=== PATIENT | male | born 1980 | race African-American/Black ===

== ENCOUNTER 2021-02-28 17:01 | Inpatient (IN) | payer OTHER, SELFPAY ==
[2021-02-28 17:35] LABS: Basophils % 1.1 % (0-1.3); Hematocrit 41.1 % (39.6-49.0); Lymphocytes % 40.3 % (15.3-44.8); MPV 8.9 fL (7.6-11.3); RBC Red Blood Cell Count 4.63 M/uL (4.33-5.43)
[2021-02-28 17:36] LABS: Protime INR 1.08
[2021-02-28] MEDS ORDERED: ASPIRIN 81 MG CHEWABLE TABLET ONE (17:42)
[2021-02-28] MEDS ORDERED: MORPHINE 4 MG/ML SYR ONE (17:43)
[2021-02-28] MEDS ORDERED: ONDANSETRON 4 MG/2 ML VIAL ONE (17:43)
[2021-02-28] MEDS ORDERED: FAMOTIDINE 20 MG/2 ML VIAL IV ONE (17:44)
[2021-02-28 17:47] LABS: Albumin 3.8 g/dL (3.4-5.0); Potassium 3.9 mmol/L (3.5-5.1)
--- NOTE | 2021-02-28 17:56 | ER ---
Nurse's Notes [facility] Name: Beau Jacobo Age: 40 yrs Sex: Male : 1980 Arrival Date: 02/28/2021 Time: 17:02 Bed 6 Private MD: Diagnosis: Chest pain, unspecified;Chest pain on breathing;Essential (primary) hypertension;Angina pectoris, unspecified Presentation: 02/28 17:18 Chief complaint: Patient states: Pt reporting that he woke up this am with pressure jh6 type pain that radiated to back. states taking a deep breath makes the pain worse. Coronavirus screen: Vaccine status: Patient reports being unvaccinated. Ebola Screen: Patient negative for fever greater than or equal to 101.5 degrees Fahrenheit, and additional compatible Ebola Virus Disease symptoms No symptoms or risks identified at this time. Initial Sepsis Screen: Does the patient meet any 2 criteria? No. Patient's initial sepsis screen is negative. Does the patient have a suspected source of infection? No. Patient's initial sepsis screen is negative. Risk Assessment: Do you want to hurt yourself or someone else? Patient reports no desire to harm self or others. Onset of symptoms was February 28, 2021. Care prior to arrival: None. Activity prior to arrival: None. Mechanism of Injury: No Mechanism of Injury. 17:18 Method Of Arrival: Ambulatory [facility] 17:18 Acuity: STAN 2 [facility] Triage Assessment: 17:36 General: Appears comfortable, well developed, Behavior is calm, cooperative. Pain: [facility] Complains of pain in chest Pain radiates to back Pain currently is 8 out of 10 on a pain scale. Quality of pain is described as pressure. Historical: - Allergies: 17:37 No Known Allergies; [facility] - Home Meds: 17:37 None [Active]; [facility] - PMHx: 17:37 None; [facility] - Immunization history:: Adult Immunizations unknown. - Family history:: not pertinent. - Social history:: Patient/guardian denies using Smoking status: Patient denies any tobacco usage or history of. Screenin:36 Abuse screen: Denies threats or abuse. Nutritional screening: No deficits noted. [facility] Tuberculosis screening: No symptoms or risk factors identified. Fall Risk None identified. Assessment: 17:34 Also complains of no other symptoms. Pain: Complains of pain in chest Pain does not jh radiate. Pain radiates to back Pain currently is 10 out of 10 on a pain scale. Quality of pain is described as pressure, Pain began suddenly. Cardiovascular: Reports chest pain, Capillary refill < 3 seconds Rhythm is sinus rhythm. Respiratory: No deficits noted. 18:34 Pain: Complains of pain in chest Pain radiates to back Pain currently is 3 out of 10 on [facility] a pain scale. Is intermittent. Vital Signs: 17:18 BP 134 / 87; Pulse 78; Resp 20; Temp 98.6; jh6 17:35 BP 132 / 86; Pulse 69; Resp 17; Pulse Ox 100% ; jh6 18:14 BP 137 / 84; Pulse 71; Resp 18; Pulse Ox 99% on 2 lpm NC; jh6 18:33 Weight 104.5 kg; 6 Vitals: 18:14 Cardiac Rhythm Assessment Regular. [facility] ED Course: 17:02 Patient arrived in ED. am2 17:03 Mitchell Murillo MD is Attending Physician. [facility] 17:10 Inserted saline lock: 20 gauge in right antecubital area, using aseptic technique. 6 17:13 EKG done, by ED staff, reviewed by Mitchell Murillo MD. [facility] 17:15 Patient has correct armband on for positive identification. Bed in low position. Call [facility] light in reach. Side rails up X 1. 17:17 Ayde Ashraf, RN is Primary Nurse. jh6 17:34 Triage completed. jh6 17:37 awake overnight monitor on. Pulse ox on. 6 17:38 Arm band placed on. 6 17:39 Oxygen administration via nasal cannula \T\ 2L/min. jh6 17:46 XRAY Chest (1 view) In Process Unspecified. EDMS 17:47 X-ray(s) taken. PT TAKEN TO CT VIA WHEELCHAIR. jh6 17:56 Laith Sierra DO is Hospitalizing Provider. [facility] 17:57 Herbert London MD is Hospitalizing Provider. [facility] 18:01 CT Aorta for Dissection In Process Unspecified. EDMS 18:[address] VIA WHEELCHAIR. jh6 21:06 No provider procedures requiring assistance completed. Patient admitted, IV remains in em place. Administered Medications: 17:55 Drug: NS 0.9% 1000 ml Route: IV; Rate: 1 bolus; Site: right antecubital; jh6 20:19 Follow up: IV Status: Completed infusion bs2 18:10 Drug: morphine 4 mg Route: IVP; Site: right antecubital; jh6 18:45 Follow up: Response: Pain is decreased jh6 18:15 Drug: Pepcid (famotidine) 20 mg Route: IVP; Site: right antecubital; jh6 18:46 Follow up: Response: Pain is decreased jh6 18:15 Drug: Zofran (Ondansetron) 4 mg Route: IVP; Site: right antecubital; jh6 18:45 Follow up: Response: No adverse reaction jh6 18:18 Drug: NS 0.9% 1000 ml Route: IV; Rate: 125 ml/hr; Site: right antecubital; jh6 20:20 Follow up: IV Status: Infusion continued upon admission bs2 18:18 Drug: Aspirin Chewable Tablet 324 mg Route: PO; jh6 18:46 Follow up: Response: No adverse reaction jh6 18:45 Drug: PlaVIX (clopidogrel) 300 mg Route: PO; jh6 18:51 Follow up: Response: No adverse reaction jh6 18:45 Drug: Lovenox (enoxaparin) 1 mg/kg Route: Sub-Q; Site: right lower abdomen; jh6 18:51 Follow up: Response: No adverse reaction jh6 18:51 CANCELLED (FLUIDS NOT NEEDED.): NS 0.9% 500 ml IV at bolus once jh6 19:06 Drug: Mucomyst - Acetylcysteine 600 mg Route: PO; jh6 20:19 Follow up: Response: No adverse reaction bs2 20:17 Not Given (Hemodynamic Parameters; HR 566): Lopressor (metoprolol TARTRATE)) 25 mg PO em once Outcome: 17:56 Decision to Hospitalize by Provider. gregory 21:06 Admitted to Med/surg accompanied by nurse, via wheelchair, room 224, Report called to flora Choi RN 21:06 Condition: good 21:06 Instructed on discharge instructions, Demonstrated understanding of instructions. 21:07 Patient left the ED. em Signatures: Dispatcher [facility] Mitchell Willett MD MD cha Munoz, Edgar, RN RN Shaheed Jimenez em1 Paul Moreno, MILITARY SCIENCE TEACHER-C MILITARY SCIENCE TEACHER-Cla1 Monica Raphael am2 Maritza Dueñas 3 Glenys Castellano, RN RN bs2 Ayde Ashraf RN RN jh6 Corrections: (The following items were deleted from the chart) 17:15 17:14 EKG done, by ED staff, reviewed by Mitchell Murillo MD em1 em1 17:39 17:38 Social history: Smoking status: Patient denies any tobacco usage or history of. david jh6
--- NOTE | 2021-02-28 17:57 | EDPHYS ---
Physician Documentation [facility] Name: Beau Jacobo Age: 40 yrs Sex: Male : 1980 Arrival Date: 02/28/2021 Time: 17:02 Bed 6 Private MD: ED Physician Mitchell Murillo HPI: 02/28 17:17 This 40 yrs old Black Male presents to ER via Unassigned with complaints of Chest Pain. [facility] 17:17 The patient or guardian reports chest pain that is located primarily in the anterior [facility] chest wall, bilaterally. Onset: this morning. The pain radiates to Associated signs and symptoms: Pertinent positives: shortness of breath. The chest pain is described as a heaviness, sharp. Duration: The patient or guardian reports a single episode, that is still ongoing. Modifying factors: The symptoms are alleviated by remaining still, the symptoms are aggravated by deep breath. Severity of pain: At its worst the pain was mild moderate in the emergency department the pain is unchanged. Historical: - Allergies: 17:37 No Known Allergies; [facility] - Home Meds: 17:37 None [Active]; [facility] - PMHx: 17:37 None; [facility] - Immunization history:: Adult Immunizations unknown. - Family history:: not pertinent. - Social history:: Patient/guardian denies using Smoking status: Patient denies any tobacco usage or history of. ROS: 17:17 Constitutional: Negative for fever, chills, and weight loss, Eyes: Negative for injury, gregory pain, redness, and discharge, ENT: Negative for injury, pain, and discharge, Neck: Negative for injury, pain, and swelling, Abdomen/GI: Negative for abdominal pain, nausea, vomiting, diarrhea, and constipation, Back: Negative for injury and pain, : Negative for injury, bleeding, discharge, and swelling, MS/Extremity: Negative for injury and deformity, Skin: Negative for injury, rash, and discoloration, Neuro: Negative for headache, weakness, numbness, tingling, and seizure, Psych: Negative for depression, anxiety, suicide ideation, homicidal ideation, and hallucinations, Allergy/Immunology: Negative for hives, rash, and allergies, Endocrine: Negative for neck swelling, polydipsia, polyuria, polyphagia, and marked weight changes, Hematologic/Lymphatic: Negative for swollen nodes, abnormal bleeding, and unusual bruising. 17:17 Cardiovascular: Positive for chest pain, of the chest. 17:17 Cardiovascular: Positive for Exam: 17:17 Constitutional: This is a well developed, well nourished patient who is awake, alert, gregory and in no acute distress. Head/Face: Normocephalic, atraumatic. Eyes: Pupils equal round and reactive to light, extra-ocular motions intact. Lids and lashes normal. Conjunctiva and sclera are non-icteric and not injected. Cornea within normal limits. Periorbital areas with no swelling, redness, or edema. ENT: Nares patent. No nasal discharge, no septal abnormalities noted. Tympanic membranes are normal and external auditory canals are clear. Oropharynx with no redness, swelling, or masses, exudates, or evidence of obstruction, uvula midline. Mucous membranes moist. Neck: Trachea midline, no thyromegaly or masses palpated, and no cervical lymphadenopathy. Supple, full range of motion without nuchal rigidity, or vertebral point tenderness. No Meningismus. Chest/axilla: Normal chest wall appearance and motion. Nontender with no deformity. No lesions are appreciated. Cardiovascular: Regular rate and rhythm with a normal S1 and S2. No gallops, murmurs, or rubs. Normal PMI, no JVD. No pulse deficits. Respiratory: Lungs have equal breath sounds bilaterally, clear to auscultation and percussion. No rales, rhonchi or wheezes noted. No increased work of breathing, no retractions or nasal flaring. Abdomen/GI: Soft, non-tender, with normal bowel sounds. No distension or tympany. No guarding or rebound. No evidence of tenderness throughout. Back: No spinal tenderness. No costovertebral tenderness. Full range of motion. Skin: Warm, dry with normal turgor. Normal color with no rashes, no lesions, and no evidence of cellulitis. MS/ Extremity: Pulses equal, no cyanosis. Neurovascular intact. Full, normal range of motion. Neuro: Awake and alert, GCS 15, oriented to person, place, time, and situation. Cranial nerves II-XII grossly intact. Motor strength 5/5 in all extremities. Sensory grossly intact. Cerebellar exam normal. Normal gait. Psych: Awake, alert, with orientation to person, place and time. Behavior, mood, and affect are within normal limits. 17:17 Musculoskeletal/extremity: DVT Exam: No signs of deep vein thrombosis. no pain, no swelling, no tenderness, negative Homans' sign noted on exam, no appreciated bluish discoloration, no erythema, no increased warmth. Vital Signs: 17:18 BP 134 / 87; Pulse 78; Resp 20; Temp 98.6; jh6 17:35 BP 132 / 86; Pulse 69; Resp 17; Pulse Ox 100% ; jh6 18:14 BP 137 / 84; Pulse 71; Resp 18; Pulse Ox 99% on 2 lpm NC; jh6 18:33 Weight 104.5 kg; jh6 MDM: 17:08 Patient medically screened. gregory 17:19 Differential diagnosis: abnormal EKG, acute myocardial infarction, acute pericarditis, gregory coronary artery disease chest wall pain, congestive heart failure cholecystitis, hiatal hernia, pancreatitis, pericarditis, pulmonary embolus, stable angina, thoracic aortic disection, unstable angina. HEART Score: History: Moderately Suspicious (1), ECG: Non specific repolarization disturbance / LBTB / PM (1), Age: < or = 45 years (0), Risk Factors: 1 or 2 risk factors (1), [Hypertension] [+ Family HX] Troponin: < or = 1 x Normal Limit (0). The patient was given aspirin in the Emergency Department. The patient's deep vein thrombosis risk score was calculated as follows: Total Score: 0. This patient was found to be at low risk for a deep vein thrombosis by using the Well's assessment criteria. The patient's pulmonary embolism risk score was calculated as follows: Total Score: 0-2 points. This patient was found to be at low risk for a pulmonary embolism by using the Well's assessment criteria. NITA Risk Score: TOTAL SCORE = 0. Data reviewed: vital signs, nurses notes, lab test result(s), EKG, radiologic studies, CT scan, plain films. Data interpreted: oracle dba: rate is 79 beats/min, rhythm is regular, Pulse oximetry: on room air is 100 %. Test interpretation: by ED physician or midlevel provider: ECG, plain radiologic studies. Counseling: I had a detailed discussion with the patient and/or guardian regarding: the historical points, exam findings, and any diagnostic results supporting the discharge/admit diagnosis, lab results, radiology results, the need for further work-up and treatment in the hospital. 02/28 17:17 Order name: Basic Metabolic Panel; Complete Time: 18:13 [facility] 02/28 17:17 Order name: CBC with Diff; Complete Time: 17:52 [facility] 02/28 17:17 Order name: LFT's; Complete Time: 18:13 [facility] 02/28 17:17 Order name: Magnesium; Complete Time: 18:13 [facility] 02/28 17:17 Order name: NT PRO-BNP; Complete Time: 18:13 [facility] 02/28 17:17 Order name: PT-INR; Complete Time: 17:52 [facility] 02/28 17:17 Order name: Troponin (emerg Dept Use Only); Complete Time: 18:13 [facility] 02/28 17:17 Order name: XRAY Chest (1 view); Complete Time: 18:23 [facility] 02/28 17:17 Order name: Lipase; Complete Time: 18:13 [facility] 02/28 17:17 Order name: CT Aorta for Dissection; Complete Time: 18:13 [facility] 02/28 17:17 Order name: SARS-COV-2 RT PCR (Document "Date of Onset" if Symptomatic) 02/28 17:17 Order name: EKG; Complete Time: 17:18 [facility] 02/28 17:17 Order name: Cardiac monitoring; Complete Time: 20:20 [facility] 02/28 17:17 Order name: EKG - Nurse/Tech; Complete Time: 20:20 [facility] 02/28 17:17 Order name: IV Saline Lock; Complete Time: 20:20 [facility] 02/28 17:17 Order name: Labs collected and sent; Complete Time: 20:20 [facility] 02/28 17:17 Order name: O2 Per Protocol; Complete Time: 20:20 [facility] 02/28 17:17 Order name: O2 Sat Monitoring; Complete Time: 20:20 [facility] Administered Medications: 17:55 Drug: NS 0.9% 1000 ml Route: IV; Rate: 1 bolus; Site: right antecubital; jh6 20:19 Follow up: IV Status: Completed infusion bs2 18:10 Drug: morphine 4 mg Route: IVP; Site: right antecubital; jh6 18:45 Follow up: Response: Pain is decreased jh6 18:15 Drug: Pepcid (famotidine) 20 mg Route: IVP; Site: right antecubital; jh6 18:46 Follow up: Response: Pain is decreased jh6 18:15 Drug: Zofran (Ondansetron) 4 mg Route: IVP; Site: right antecubital; jh6 18:45 Follow up: Response: No adverse reaction jh6 18:18 Drug: NS 0.9% 1000 ml Route: IV; Rate: 125 ml/hr; Site: right antecubital; jh6 20:20 Follow up: IV Status: Infusion continued upon admission bs2 18:18 Drug: Aspirin Chewable Tablet 324 mg Route: PO; jh6 18:46 Follow up: Response: No adverse reaction jh6 18:45 Drug: PlaVIX (clopidogrel) 300 mg Route: PO; jh6 18:51 Follow up: Response: No adverse reaction jh6 18:45 Drug: Lovenox (enoxaparin) 1 mg/kg Route: Sub-Q; Site: right lower abdomen; jh6 18:51 Follow up: Response: No adverse reaction jh6 18:51 CANCELLED (FLUIDS NOT NEEDED.): NS 0.9% 500 ml IV at bolus once jh6 19:06 Drug: Mucomyst - Acetylcysteine 600 mg Route: PO; jh6 20:19 Follow up: Response: No adverse reaction bs2 20:17 Not Given (Hemodynamic Parameters; HR 566): Lopressor (metoprolol TARTRATE)) 25 mg PO em once Disposition Summary: 02/28/21 17:56 Hospitalization Ordered Location: Telemetry/MedSurg (Inpatient) gregory Problem: new gregory Symptoms: have improved gregory Bed/Room Type: Standard gregory Provider: Herbert London(02/28/21 17:57) laCarmen Hospitalization Status: Inpatient Admission(02/28/21 18:11) gregory Condition: Fair(02/28/21 18:11) gregory Room Assignment: 224(02/28/21 19:41) Diagnosis - Chest pain, unspecified gregory - Chest pain on breathing gregory - Essential (primary) hypertension gregory - Angina pectoris, unspecified gregory Forms: - Medication Reconciliation Form gregory - SBAR form gregory Signatures: Dispatcher [employer] Mitchell Willett MD MD cha Attema, Lee, PRE PRESS OPERATOR-C PRE PRESS OPERATOR-Cla1 Ros Gomez RN RN Ayde Ashraf RN RN 6 Alcon Dominique RN Glenys RN bs2 Corrections: (The following items were deleted from the chart) 17:39 17:38 Social history: Smoking status: Patient denies any tobacco usage or history of. [place] [id number] 17:57 17:56 Laith Sierra [facility] la1 18:11 17:56 Observation [facility] 18:11 17:56 Stable [facility] 18:51 17:17 NS 0.9% 500 ml IV at bolus once ordered. [place] [id number] 19:41 17:56 gregory
[2021-02-28 18:05] LABS: Bilirubin Direct 0.2 mg/dL (0-0.2); Bilirubin Total 0.6 mg/dL (0.2-1.0); Protein, Total 7.3 g/dL (6.4-8.2)
[2021-02-28 18:09] LABS: Troponin (Emerg Dept Use Only) 0.52 ng/mL (0.0-0.045)
--- NOTE | 2021-02-28 18:10 | RAD REPORT ---
EXAM DESCRIPTION: CTAngio Aorta For Dissection - 02/28/2021 6:01 pm CLINICAL HISTORY: CHEST PAIN COMPARISON: No comparisons TECHNIQUE: CT of the chest, abdomen, and pelvis was performed. All CT scans are performed using dose optimization technique as appropriate and may include automated exposure control or mA/KV adjustment according to patient size. FINDINGS: Thorax: Chest Wall: No abnormal mass Lungs: No acute abnormality. Pleura: No effusions or pneumothorax. Becca/Mediastinum: No lymphadenopathy. Aorta/Pulmonary Arteries: Unremarkable Heart: Normal size. Abdomen/Pelvis: Liver: No acute abnormality or suspicious lesions. Biliary: No biliary ductal dilatation. Stomach: No significant focal abnormality. Duodenum: No significant focal abnormality. Pancreas: No significant abnormality. Spleen: No significant abnormality. Adrenal: No suspicious lesions. Kidney/ureter: No hydronephrosis. No renal calculi. Retroperitoneum: No retroperitoneal adenopathy. Vascular: No aneurysm. Bowel: No significant focal abnormality. Peritoneum: No ascites or free air. Bladder: Grossly unremarkable. Reproductive: No adnexal masses. Bones: No acute fracture. Other: n/a IMPRESSION: No evidence of aortic aneurysm or dissection. No other acute findings are identified.
--- NOTE | 2021-02-28 18:12 | RAD REPORT ---
EXAM DESCRIPTION: RAD - Chest Single View - 02/28/2021 5:46 pm CLINICAL HISTORY: CHEST PAIN COMPARISON: CHEST PA AND LAT 2 VIEW dated 11/12/2012; CHEST PA AND LAT 2 VIEW dated 09/07/1999 FINDINGS: Lines: None. Lungs: No evidence of edema or pneumonia. Pleural: No significant pleural effusions or pneumothorax. Cardiac: The heart size is within normal limits. Bones: No acute fractures. Other: IMPRESSION: No acute cardiopulmonary disease.
[2021-02-28] MEDS ORDERED: CLOPIDOGREL 75 MG TABLET ONE (18:35)
[2021-02-28] MEDS ORDERED: ENOXAPARIN 100 MG/ML SYR SQ ONE (18:36)
--- NOTE | 2021-02-28 18:41 | P.HP ---
Certification for Inpatient Patient admitted to: Inpatient With expected LOS: >2 Midnights Patient will require the following post-hospital care: None Practitioner: I am a practitioner with admitting privileges, knowledge of patient current condition, hospital course, and medical plan of care. Services: Services provided to patient in accordance with Admission requirements found in Title 42 Section 412.3 of the Code of Federal Regulations <Paul Moreno Russel - Last Filed: 02/28/21 18:39> Patient History Date of Service: 02/28/21 Primary Care Provider: None Reason for admission: NSTEMI History of Present Illness: 40-year-old otherwise healthy -[place] male presents emergency department for chest pain. Patient reports that his pain began this morning described as pressure-like radiating to his left shoulder, left arm and left neck. Patient was evaluated in the emergency department labs were significant for creatinine 1.47 GFR 64 calcium [address] dissection protocol negative for any acute findings chest x-ray unremarkable. Patient with NSTEMI, ED provider wishes to admit for further evaluation and management. 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 moist/pink, EOMI, Sclerae nonicteric Neck: Supple, 2+ carotid pulse no bruit, No LAD, Without JVD or thyroid abnormality Respiratory: Clear to auscultation bilaterally, Normal air movement Cardiovascular: Regular rate/rhythm, Normal S1 S2 Gastrointestinal: Normal bowel sounds, No tenderness Musculoskeletal: No tenderness Integumentary: No rashes Neurological: Normal gait, Normal speech, Normal strength at 5/5 x4 extr, Normal tone, Normal affect Lymphatics: No axilla or inguinal lymphadenopathy - Studies Laboratory Data (last 24 hrs) 02/28/21 17:20: PT 12.4, INR 1.08 02/28/21 17:20: WBC 4.90, Hgb 13.9, Hct 41.1, Plt Count 246 02/28/21 17:20: Sodium 143, Potassium 3.9, BUN 16, Creatinine 1.47 H, Glucose 93, Magnesium 2.0, Total Bilirubin 0.6, AST 26, ALT 27, Alkaline Phosphatase 63, Lipase 182 <Paul Moreno - Last Filed: 02/28/21 18:39> Assessment and Plan - Plan Assessment: NSTEMI suspect ACS Renal insufficiency Plan: NSTEMI suspect ACS: Continue with aspirin, statin, Plavix, beta-rehana, Lovenox. N.p.o. for midnight for possible cardiac catheterization, cardiology consulted will trend troponin and monitor on telemetry. Renal insufficiency: Continue IV fluids overnight recheck with morning labs. If no significant provement will consider further evaluation. DVT PPX: Full dose Lovenox Code status: Full code Discharge Plan: Home Plan to discharge in: 48 Hours - Advance Directives Does patient have a Living Will: No Does patient have a Durable POA for Healthcare: No - Code Status/Comfort Care Code Status Assessed: Yes (Full code) Critical Care: No Time Spent Managing Pts Care (In Minutes): 55 <Paul Moreno - Last Filed: 02/28/21 18:39> - Problems (Diagnosis) (1) Non-STEMI (non-ST elevated myocardial infarction) Status: Acute <Herbert London - Last Filed: 03/07/21 19:20> Date of Service: 02/28/21 Subjective Agree with the HPI as above Review of Systems 10-point ROS is otherwise unremarkable Physical Examination - Vital Signs Reviewed - Physical Exam General: Alert, In no apparent distress, Oriented x3 HEENT: Atraumatic, PERRLA, EOMI Neck: Supple, JVD not distended Respiratory: Clear to auscultation bilaterally, Normal air movement Cardiovascular: Regular rate/rhythm, Normal S1 S2 Gastrointestinal: Normal bowel sounds, No tenderness Musculoskeletal: No tenderness Integumentary: No rashes Neurological: Normal speech, Normal tone, Normal affect Lymphatics: No axilla or inguinal lymphadenopathy - Studies Medications List Reviewed: Yes Assessment & Plan - Problems (Diagnosis) (1) Non-STEMI (non-ST elevated myocardial infarction) Current Visit: Yes Status: Acute - Plan 1. Serial troponins and EKG 2. Appreciate Cardiology consultation 3. Echocardiogram and stress test if cardiology is agreeable 4. Anti-platelet therapy, anti coagulation, beta-rehana, statin, and O2 as needed 5. IV morphine for pain 6. Nitro p.r.n. - Advance Directives Does patient have a Living Will: No Does patient have a Durable POA for Healthcare: No <Herbert London - Last Filed: 03/07/21 19:20>
[2021-02-28] MEDS ORDERED: ACETYLCYST 6,000 MG/30 ML VIAL ONE (19:01)
[2021-02-28] MEDS: NA CHLORIDE 0.9% 1,000 ML IV SCH (21:42)
[2021-02-28] MEDS ORDERED: MORPHINE 2 MG/ML SYR IV PRN (21:42)
[2021-02-28] MEDS ORDERED: ONDANSETRON 4 MG/2 ML VIAL IV PRN (21:42)
[2021-02-28] MEDS: ATORVASTATIN 40 MG TAB PO SCH (22:51)
[2021-03-01 00:44] LABS: Urine Appearance CLEAR (Clear); Urine Bilirubin NEGATIVE (Negative); Urine Blood NEGATIVE (Negative); Urine Color YELLOW (Yellow); Urine Glucose NEGATIVE (Negative); Urine Protein NEGATIVE (Negative); Urine Specific Gravity >=1.030 (1.005-1.030); Urine pH 6.5 (5.0-7.0)
[2021-03-01 00:47] LABS: Urine Microscopic Reflex NO UMIC
[2021-03-01 05:43] LABS: Absolute Lymphocytes (CBC) 1.4 K/uL (0.7-4.9); Basophils % 0.9 % (0-1.3); Lymphocytes % 50.5 % (15.3-44.8); MPV 8.8 fL (7.6-11.3)
[2021-03-01] MEDS: METOPROLOL TAR 25 MG TAB PO SCH ×2 (05:47→18:00)
[2021-03-01 06:52] LABS: White Blood Cell Scan OK (OK)
[2021-03-01 06:53] LABS: Blood Morphology Comment NOT SEEN (NOT SEEN); Platelet Estimate ADEQ
[2021-03-01 07:28] LABS: ALT/SGPT 24 U/L (12-78); AST/SGOT 20 U/L (15-37); Albumin 3.4 g/dL (3.4-5.0); Alkaline Phosphatase 52 U/L (45-117); BUN Blood Urea Nitrogen 15 mg/dL (7-18); Bicarbonate 29 mmol/L (21-32); Bilirubin Total 0.6 mg/dL (0.2-1.0); Glucose Level 94 mg/dL (74-106); HDL Cholesterol 35 mg/dL (40-60); LDL Cholesterol, Calculated 71 (<130); Protein, Total 6.4 g/dL (6.4-8.2); Sodium Level 144 mmol/L (136-145)
[2021-03-01 07:31] LABS: Magnesium 1.2 mg/dL (1.8-2.4); Troponin I 1.12 ng/mL (0.0-0.045)
[2021-03-01] MEDS: NA CHLORIDE 0.9% 1,000 ML IV SCH ×2 (07:42→17:42)
[2021-03-01] MEDS ORDERED: Magnesium Sulfate 2gm IVPB 2 G/50 ML BAG IV ONE ×2 (08:30→11:07)
[2021-03-01] MEDS: CLOPIDOGREL 75 MG TABLET PO SCH (08:53)
[2021-03-01] MEDS: ASPIRIN EC 81 MG TAB PO SCH (10:53)
[2021-03-01] MEDS ORDERED: HEPA 1000U/500MLS 2,000 UNIT/1,000 ML BAG IV ONE (16:10)
[2021-03-01] MEDS ORDERED: MIDAZOLAM HCL 2 MG/2 ML INJ ONE (16:10)
[2021-03-01] MEDS ORDERED: FENTANYL CITR 100 MCG/2 ML ONE (16:11)
[2021-03-01] MEDS ORDERED: ATROPINE SULF 1 MG/10 ML SYR IV ONE (16:11)
[2021-03-01] MEDS ORDERED: VERAPAMIL HCL 10 MG/4 ML VIAL IV ONE (16:11)
[2021-03-01] MEDS ORDERED: HEPARIN 5000 UNIT/ML 1 ML VIAL ONE (16:11)
[2021-03-01] MEDS ORDERED: NA CHLORIDE 0.9% 0 ML ONE (16:23)
[2021-03-01] MEDS: ATORVASTATIN 40 MG TAB PO SCH (20:22)
[2021-03-01] MEDS ORDERED: ACETAMINOPHEN 325 MG TABLET PO PRN (22:30)
[2021-03-01] MEDS ORDERED: NITROGLYCERIN 0.4 MG/TAB SL PRN (22:30)
[2021-03-02 00:46] VITALS: BMI 30.6
[2021-03-02 00:52] VITALS: O2SAT 98
[2021-03-02 03:55] LABS: Basophils % 0.6 % (0-1.3); Hematocrit 42.5 % (39.6-49.0); Lymphocytes % 27.5 % (15.3-44.8); MPV 8.5 fL (7.6-11.3); RBC Red Blood Cell Count 4.76 M/uL (4.33-5.43)
[2021-03-02] MEDS: NA CHLORIDE 0.9% 1,000 ML IV SCH (03:55)
--- NOTE | 2021-03-02 04:11 | OP ---
Date of Procedure: 03/01/2021 Surgeon: SARAH GUZMAN Procedure Performed: Selective coronary angiogram. Indication: Non-ST elevation myocardial infarction. Access: Right radial artery 6-Kosovan closed with TR band. Complications: None. Bleeding: Less than 10 mL. Anesthesia: Total sedation time was 15 minutes. Description Of Procedure: After risks, benefits, and alternatives were explained, the patient agreed to procedure and signed informed consent. The patient was brought into the cardiac catheterization laboratory, prepped and draped in usual sterile fashion. We accessed the radial artery using pediatr ic micropuncture kit and placed a 6-Kosovan slender sheath, took a 5-Kosovan tiger 4.0 catheter into ao rtic root, engaged left main, right coronary artery, took standard views. I removed the catheter and the sheath and placed TR band with good hemostasis. Findings: 1.Left main, large and normal. 2.LAD is large and normal and all diagonal branches are normal. 3.Left circumflex is normal small vessel, nondominant. 4.RCA; large dominant and normal. Conclusion: Normal coronary arteries. Recommendation: Search for other causes of chest pain. SR/MODL Voice ID: [id number] Report ID: [id number]
[2021-03-02 04:17] LABS: Albumin 3.4 g/dL (3.4-5.0); Bilirubin Total 0.6 mg/dL (0.2-1.0); Magnesium 2.1 mg/dL (1.8-2.4); Protein, Total 6.5 g/dL (6.4-8.2)
[2021-03-02] MEDS: METOPROLOL TAR 25 MG TAB PO SCH (05:41)
--- NOTE | 2021-03-02 06:50 | ECHO ---
HEIGHT: 6 ft 0 in WEIGHT: 226 lb 0 oz DATE OF STUDY: 03/01/[address]: Paul Moreno NP 2-DIMENSIONAL: YES M.MODE: YES DOPPLER: YES COLOR FLOW: YES TDS: PORTABLE: DEFINITY: BUBBLE STUDY: DIAGNOSIS: NON ST ELEVATION MYOCARDIAL INFARCTION CARDIAC HISTORY: CATHERIZATION: YES SURGERY: NO PROSTHETIC VALVE: NO PACEMAKER: NO MEASUREMENTS (cm) DIASTOLIC (NORMALS) SYSTOLIC (NORMALS) IVSd 1.0 (0.6-1.2) LA Diam 3.0 (1.9-4.0) LVEF 67% LVIDd 5.2 (3.5-5.7) LVIDs 3.3 (2.0-3.5) %FS 37% LVPWd 1.0 (0.6-1.2) Ao Diam 2.7 (2.0-3.7) 2 DIMENSIONAL ASSESSMENT: RIGHT ATRIUM: NORMAL LEFT ATRIUM: NORMAL RIGHT VENTRICLE: NORMAL LEFT VENTRICLE: NORMAL TRICUSPID VALVE: NORMAL MITRAL VALVE: NORMAL PULMONIC VALVE: NORMAL AORTIC VALVE: NORMAL PERICARDIAL EFFUSION: NONE AORTIC ROOT: NORMAL LEFT VENTRICULAR WALL MOTION: NORMAL DOPPLER/COLOR FLOW: MILD MITRAL REGURGITATION COMMENTS: NORMAL LEFT VENTRICULAR EJECTION FRACTION 60-65%. NORMAL WALL MOTION. MILD MITRAL REGURGITATION. TECHNOLOGIST: JOSE D VIZCAINO
[2021-03-02] MEDS ORDERED: INFLUENZA VACCINE (for 6+ mo) 0.5 ML DOSE IMVAC ONE (08:00)
[2021-03-02] MEDS: CLOPIDOGREL 75 MG TABLET PO SCH (10:57)
[2021-03-02] MEDS: ASPIRIN EC 81 MG TAB PO SCH (10:57)
--- NOTE | 2021-03-02 11:13 | P.PN ---
Subjective Date of Service: 03/01/21 Patient's troponins remained elevated. Still has some chest discomfort. Scheduled for heart catheterization. Review of Systems 10-point ROS is otherwise unremarkable Physical Examination - Vital Signs Temperature: 97.4 F Blood Pressure: 108/68 Pulse: 56 Respirations: 16 Pulse Ox (%): 97 - Physical Exam General: Alert, In no apparent distress, Oriented x3 HEENT: Atraumatic, PERRLA, EOMI Neck: Supple, JVD not distended Respiratory: Clear to auscultation bilaterally, Normal air movement Cardiovascular: Regular rate/rhythm, Normal S1 S2 Gastrointestinal: Normal bowel sounds, No tenderness Musculoskeletal: No tenderness Integumentary: No rashes Neurological: Normal speech, Normal tone, Normal affect Lymphatics: No axilla or inguinal lymphadenopathy - Studies Medications List Reviewed: Yes Assessment & Plan - Problems (Diagnosis) (1) Non-STEMI (non-ST elevated myocardial infarction) Current Visit: Yes Status: Acute - Plan 1. Serial troponins and EKG 2. Appreciate Cardiology consultation 3. Echocardiogram and stress test if cardiology is agreeable 4. Anti-platelet therapy, anti coagulation, beta-rehana, statin, and O2 as needed 5. IV morphine for pain 6. Nitro p.r.n. - Advance Directives Does patient have a Living Will: No Does patient have a Durable POA for Healthcare: No
[2021-03-02 12:11] VITALS: BP 129/83; TEMP 97.9
--- NOTE | 2021-03-07 19:22 | P.DS ---
Discharge Date: 03/02/21 Primary Care Provider: None Disposition: ROUTINE DISCHARGE Discharge Condition: GOOD Reason for Admission: NSTEMI Consultations: Cardiology - Problems (1) Non-STEMI (non-ST elevated myocardial infarction) Status: Acute Brief History of Present Illness: Patient is a 40-year-old otherwise healthy -Italian male [facility]. Patient reports that his pain began this morning described as pressure-like radiating to his left shoulder, left arm and left neck. Patient was evaluated in the emergency department labs were significant for creatinine 1.47 GFR 64 calcium 8.[address] dissection protocol negative for any acute findings chest x-ray unremarkable. Patient with NSTEMI, ED provider wishes to admit for further evaluation and management. Hospital Course: Patient had a cardiac catheterization that was completely normal. Patient is clinically doing well, and at this time, patient is stable for discharge home. Continue with anti-inflammatory at discharge. Vital Signs/Physical Exam: Temp Pulse Resp BP Pulse Ox 97.9 F 62 16 129/83 97 03/02/21 12:00 03/02/21 12:00 03/02/21 12:00 03/02/21 12:00 03/02/21 12:00 General: Alert, In no apparent distress, Oriented x3 Laboratory Data at Discharge: WBC 3.70 K/uL (4.3-10.9) L D 03/02/21 03:33 Hgb 14.0 g/dL (13.6-17.9) D 03/02/21 03:33 Hct 42.5 % (39.6-49.0) D 03/02/21 03:33 Plt Count 225 K/uL (152-406) D 03/02/21 03:33 PT 12.4 SECONDS (9.5-12.5) 02/28/21 17:20 INR 1.08 02/28/21 17:20 Sodium 142 mmol/L (136-145) 03/02/21 03:33 Potassium 4.0 mmol/L (3.5-5.1) 03/02/21 03:33 BUN 15 mg/dL (7-18) 03/02/21 03:33 Creatinine 1.32 mg/dL (0.55-1.3) H 03/02/21 03:33 Glucose 97 mg/dL (74-106) 03/02/21 03:33 Magnesium 2.1 mg/dL (1.8-2.4) 03/02/21 03:33 Total Bilirubin 0.6 mg/dL (0.2-1.0) 03/02/21 03:33 AST 20 U/L (15-37) 03/02/21 03:33 ALT 21 U/L (12-78) 03/02/21 03:33 Alkaline Phosphatase 55 U/L (45-117) 03/02/21 03:33 Troponin I 1.12 ng/mL (0.0-0.045) H* 03/01/21 06:44 Triglycerides 100 mg/dL (<150) 03/01/21 06:44 Cholesterol 126 mg/dL (<200) 03/01/21 06:44 HDL Cholesterol 35 mg/dL (40-60) L 03/01/21 06:44 Cholesterol/HDL Ratio 3.60 03/01/21 06:44 Lipase 182 U/L (73-393) 02/28/21 17:20 Home Medications: Unobtainable 03/02/21 Physician Discharge Instructions: OK TO DC IV AND DC HOME FOLLOW-UP WITH PRIMARY CARE PROVIDER IN 1-2 WEEKS Return to the ER if symptoms worsen CALL or TEXT DR. L[address] AT [phone] IF ANY QUESTIONS REGARDING HOSPITAL STAY. PLEASE CALL THE FLOOR AT [phone] IF ANY MEDICATION OR NURSING QUESTIONS. -No Heavy lifting >5 pounds for the next 5 days. -Keep site clean and dry for 24 hours. Do not submerge under water for 5 days(no washing dishes, taking baths, hot tubs/pools, etc...) You may shower after 24 hours. -If minor oozing, may apply Band-Aid to site during the day and remove at night. -If bleeding occurs, sit down and hold pressure with your thumb and call 911 for immediate help if bleeding or swelling does not stop. Call the doctor for: -signs of infection:redness that spreads outward from the insertion site, are is warmer than surrounding tissue, pus or drainage, increased tenderness or severe swelling or bruising. -involved extremity becomes swollen, painful, cool to touch, discolored or numb. -Temperature >101 -Chest pain or pressure, shortness of breath, dizziness, nausea or vomiting. -Return to work or any other questions regarding your cardiology care. Once discharged call on the next working day for a two week follow up with your doctor. Diet: Regular Activity: Fall precautions Followup: NONE,NONE [Primary Care Provider] - Moody Philippe MD [ACTIVE - CAN ADMIT] - (Follow up in 2 weeks) Time spent managing pt's care (in minutes): 35
--- NOTE | 2021-03-08 09:53 | CON ---
Date of Consultation: 03/01/2021 Reason For Consultation: Non-ST elevation myocardial infarction. History Of Present Illness: Mr. Jacobo is 40. No previous cardiac history. No medications. No zane rgies. Comes in with classic symptoms for unstable angina. Troponin 1.12. His mag was 1.2. His cr eatinine was 1.47. Asymptomatic now. Past Medical History: As stated earlier. Allergies: STATED EARLIER. Home Medications: As stated earlier. Review of Systems: Negative. Social History: Negative. Family History: Negative. Physical Examination: Vital Signs: Stable, afebrile. No acute distress. Still has some chest pain intermittently like 2/ 10. HEENT: Negative. Neck: Supple with no bruit. Chest: Clear. Cardiac: Regular rhythm and rate with S4 gallops. No murmurs. No rubs. Abdomen: Benign. Extremities: Revealed no clubbing, cyanosis, or edema. Diagnostic Data: As stated earlier. EKG is nonspecific. Impression And Plan: Non-ST segment elevation myocardial infarction. Echocardiogram is pending. Co ntinue aspirin. Continue metoprolol. Hold Lovenox. Plan for a heart catheterization to define his coronary anatomy. The patient understands the risks and the benefits of the procedure and he agrees to erasmo GARZON Voice ID: [id number] Report ID: [id number]
== END 2021-03-02 13:43 | disposition home or self-care (01) | DRG 282 ==
LOC: ER 17:01 → ERHOLD 18:42 → 2ND 20:21
PROVIDERS: ADMIT Hospitalist; ATTEND Hospitalist
PROC: 4A023N7 Measurement of Cardiac Sampling and Pressure, Left Heart, Percutaneous Approach (ICD-10-PCS; principal; 2021-03-01)
PROC: B2111ZZ Fluoroscopy of Multiple Coronary Arteries using Low Osmolar Contrast (ICD-10-PCS; 2021-03-01)
DX: I21.4 Non-ST elevation (NSTEMI) myocardial infarction (principal); I10 Essential (primary) hypertension; N28.9 Disorder of kidney and ureter, unspecified; I20.9 Angina pectoris, unspecified; Z20.822 Contact with and (suspected) exposure to COVID-19
CPT/HCPCS: 36415; 71045; 71275; 74175; 80048; 80053; 80061; 80076; 81003; 82947; 83690; 83735; 83880; 84439; 84443; 84484; 85025; 85610; 93005; 93306; 93458; 96361; 96372; 96374; 96375; 99285; C1893; J1644; J1650; J2250; J2405; J3010; J3475; J7030; J7040; Q9967; U0003